=== PATIENT | female | born 1955 | race Caucasian/White ===

== ENCOUNTER 2017-12-17 20:49 | Emergency (ER) | payer OTHER ==
[~2017-12-17] VITALS: Ht 170.2 cm; Wt 74.3 kg
[2017-12-17] MEDS ORDERED: MEDROL DOSEPAK4 MG PO (22:17)
[2017-12-17] MEDS ORDERED: ROBITUSSIN AC,T10 ML PO (22:17)
[2017-12-17] MEDS ORDERED: ZITHROMAX Z-PA250 MG PO (22:17)
[2017-12-17 22:32] VITALS: BP 116/77
== END 2017-12-17 22:52 | disposition home or self-care (01) ==
LOC: EME 20:49
DX: J40 Bronchitis, not specified as acute or chronic (principal); F17.200 Nicotine dependence, unspecified, uncomplicated
CPT/HCPCS: 71046; 99281; 99283